=== PATIENT | female | born 1985 | race Native Hawaiian/Other Pacific Islander ===

== ENCOUNTER 2022-09-14 15:31 | Outpatient (CLI) | payer MEDICAID, SELFPAY | END 2022-09-14 15:32 | disposition home or self-care (01) | LOC: NFLDREF 15:34 | PROVIDERS: PCP Family Medicine; Visit Provider Obstetrics & Gynecology | DX: N93.9 Abnormal uterine and vaginal bleeding, unspecified (principal) | CPT/HCPCS: 84443 ==

== ENCOUNTER 2022-09-19 15:35 | Outpatient (CLI) | payer MEDICAID, SELFPAY ==
--- NOTE | 2022-09-19 16:00 | CRLHL7_ITS ---
For Patients: As a result of the Century Cures Act, medical imaging exams and procedure reports are released immediately into your electronic medical record. You may view this report before your referring provider. If you have questions, please contact your health care provider. CLINICAL HISTORY: AUB TECHNIQUE: Real time, parisi scale images were acquired of the pelvis using a transabdominal and transvaginal approach. Color Doppler analysis was performed of the ovaries. FINDINGS: The uterus measures 8.5 x 4.1 x 5.6 centimeters endometrium measures 7 millimeters. 1.7 x 1.6 x 1.5 centimeters fundal fibroid. The right ovary measures 3.1 x 1.8 x 1.7 centimeters left ovary measures 3.2 x 1.9 x 1.9 centimeters. Normal blood flow to the ovaries. IMPRESSION: 7 millimeter endometrial stripe. Dictated by Ximena López MD @ 09/20/2022 9:09:43 AM (Electronically Signed)
== END 2022-09-19 15:36 | disposition home or self-care (01) ==
LOC: US 15:36
PROVIDERS: PCP Family Medicine; Visit Provider Obstetrics & Gynecology
DX: N93.9 Abnormal uterine and vaginal bleeding, unspecified (principal); R93.89 Abnormal findings on diagnostic imaging of other specified body structures
CPT/HCPCS: 76830; 76856

== ENCOUNTER 2023-12-04 10:56 | Outpatient (CLI) | payer MEDICAID, SELFPAY ==
--- OUTSIDE RECORDS SUMMARY | 2023-12-04 11:00 | XMS_ITS | Referral Summary ---
Author Organization [facility] Address [address] [place], [place] [address] [address] Care Team Providers Care Self Defense Instructor Name Role Phone No Ref-Primary, Physician Primary Care Provider Allergies No known active allergies Medications Medication Sig Dispensed Refills Start Date End Date Status Vit-DSS-Fe Cbn-FA ( AD PO) Active acetaminophen (TYLENOL) 325 MG tablet Take 325-650 mg by mouth every 6 hours as needed for mild pain Active oxyCODONE (ROXICODONE) 5 MG tabletIndications:St atus post bilateral breast reduction Take 1-2 tablets (5-10 mg) by mouth every 4 hours as needed for moderate to severe pain 20 tablet 05/26/2022 Active senna-docusate (SENOKOT-S/PERICOLAC E) 8.6-50 MG tabletIndications:St atus post bilateral breast reduction Take 1-2 tablets by mouth 2 times daily 20 tablet 05/26/2022 Active Social History Tobacco Use Types Packs/Day Years Used Date Smoking Tobacco: Never Smokeless Tobacco: Never Tobacco Cessation:Counseling Given: Not Answered Alcohol Use Standard Drinks/Week Comments Not Currently 0 (1 standard drink = 0.6 oz pur e alcohol) Adolescent Education Answer Date Record ed Getting School Help Needed Not on file 03/17 Sex and Gender Information Value Date Recorded Sex Assigned at Not on file Gender Identity Not on file Sexual Orientation Not on file Last Filed Vital Signs Vital Sign Reading Time Taken Comments Blood Pressure 119/74 05/26/2022 12:30 PM SORTING COWS WORKER Pulse 85 05/26/2022 12:30 PM SORTING COWS WORKER Temperature 36.9 ??C (98.4 ??F) 05/26/2022 12:[address] Respiratory Rate 25 05/26/2022 12:30 PM SORTING COWS WORKER Oxygen Saturation 95% 05/26/2022 2:25 PM SORTING COWS WORKER Inhaled Oxygen Concentration - - Weight 92.7 kg (204 lb 6.4 oz) 05/26/2022 6:12 A M SORTING COWS WORKER Height 154.9 cm (5' 1) 05/26/2022 6:12 AM SORTING COWS WORKER Body Mass Index 38.62 05/26/2022 6:12 AM SORTING COWS WORKER Plan of Treatment Not on file Care Teams Self Defense Instructor Relationship Specialty Start Date End Date No Ref-Primary, Physician PCP - General 12/19/16
--- OUTSIDE RECORDS SUMMARY | 2023-12-04 11:00 | XMS_ITS | Clinical Summary ---
Author Organization [facility] Address [place], [place] [address] Care Team Providers Care Cessation Systems Outreach Specialist Name Role Phone Karina Hughes MD Primary Care Provider + [phone] Allergies No known active allergies Medications Medication Sig Dispensed Refills Start Date End Date Status propranolol ER (INDERAL LA) 80 mg Cs24 Sustained-Release capsule TK 1 C PO D 12/24/2019 Active SUMAtriptan (IMITREX) 50 mg tablet TAKE 1 TABLET BY MOUTH NEEDED FOR HEADACHE AT ONSET OF HEADACHE MAY REPEAT EVERY 2 HOURS NEEDED. MAX 4 TABLETS PER 24 HOURS 06/17/2020 Active polyethylene glycoL (MIRALAX) 17 gram/dose powder MIX 17 GRAMS IN 8 OUNCES OF WATER OR JUICE QD 12/20/2019 Active sertraline (ZOLOFT) 100 mg tablet Take 100 mg by mouth once daily. Active ibuprofen (IBU) 600 mg tablet Take 600 mg by mouth every 6 hours if needed. Maximum of 3200 mg in 24 hours. Active benzonatate (Tessalon Perles) 100 mg capsuleIndications:C ough, unspecified type Take 1 Capsule (100 mg) by mouth 3 times daily if needed for Cough. 21 Capsule 05/10/2023 Active Active Problems Problem Noted Date Diagnosed Date care, first 07/23/2014 Overview: Rubella non-immune. Karina Hughes MD .................... 07/24/2014 9:49 AM Uterine leiomyoma Resolved Problems Problem Noted Date Diagnosed Date Resolved Date Acute stress reaction 01/21/20092014 Acute gastritis without mention of hemorrhage 01/22/20 09 07/23/2014 Immunizations Name Administration Dates Next Due COVID-19 vaccine (Grocio 30mcg/0.3mL) P F, MDV 04/22/2021,03/14/2021 Hepatitis B (Adult) 10/25/2004,09/23/2004 Hepatitis B, Unspecified 10/25/2004,09/23/2004 MMR 03/23/2015,08/24/2005 Td (Age >=7 Years) 08/24/2005,09/23/2004 Tdap 01/13/2015 Varicella Vaccine 08/24/2005 Family History Medical History Relation Name Comments Diabetes Father Diabetes Mother Heart Disease Mother Hypertension Mother Stroke Mother Heart Disease Sister x2 Relation Name Status Comments Father Alive Mother Other Other no HUMAN RESOURCES LEADER malignan cy as of 06/2020 Sister Social History Tobacco Use Types Packs/Day Years Used Date Smoking Tobacco: Never Smokeless Tobacco: Never Tobacco Cessation:Counseling Given: Yes Alcohol Use Standard Drinks/Week Comments Yes 0 (1 standard drink = 0.6 oz pur e alcohol) occasional Sex and Gender Information Value Date Recorded Sex Assigned at Not on file Gender Identity Not on file Sexual Orientation Not on file Obstetrics History Para Term AB IAB SAB Ectopic Multiple Livin g Live Births 2 2 2 0 0 0 0 0 2 2 Date Outcome GA Total Labor Labor/2nd/3rd Weight Sex Type Anes PTL Agustina A1 A5 Name Clin 5 Term 38w 0d 3.57 kg (7 lb 14 oz) M C-Sec t[facility] Living 2016 Term 38w 0d 3.63 kg (8 lb) M C-Sec t[facility] Living Last Filed Vital Signs Vital Sign Reading Time Taken Comments Blood Pressure 132/81 05/10/2023 4:07 PM SORT WORKER Pulse 94 05/10/2023 4:07 PM SORT WORKER Temperature 36.9 ??C (98.5 ??F) 05/10/2023 4:07 PM CS T Respiratory Rate 20 05/10/2023 4:07 PM SORT WORKER Oxygen Saturation 97% 05/10/2023 4:07 PM SORT WORKER Inhaled Oxygen Concentration - - Weight 88 kg (194 lb) 05/10/2023 4:07 PM SORT WORKER Height 154.9 cm (5' 1) 12/02/2020 7:14 AM CDT Body Mass Index 36.66 12/02/2020 7:14 AM CDT Plan of Treatment Health Maintenance Due Date Last Done Comments Hepatitis C screening for ag e 18-79 2001 Depression screening for age 12+ 07/15/2021 07/15/2020 BMI (ht and wt on same day) for age 18+ 08/31/2021 08/31/2020, 07/15/2020 Pap test for age 21-65 07/23/2022 , 07/23/2019, 10/17/2012 COVID-19 vaccine series ( season) 2023 04/22/2021, 03/14/2021 Influenza for age 9-49 02/25/2024 Tetanus booster 01/13/2025 01/13/2015, 08/24/2005, 09/23/2004 HIV for age 15-65 Completed 07/23/2014 Tdap Completed 01/13/2015 Pneumococcal series for age 6-64 Aged Out No longer eligible b ased on patient's age to complete this topic Medical Devices Implanted Type Area Radiosonde Specialist Device Identifier Shelf Expiration Date Model / Serial / Lot Sys Intrauterine Mirena - [id number] Implanted:Qty: 1 on 12/02/2020 by Hien Hodgson MD at [facility] N/A: Uterus Card [employer] 02/23/2023 [id number] / [id number] / [id number] Adhesion Barrier 3x4in Interceed Absorb - [id number] Implanted:Qty: 1 on 12/02/2020 by Hien Hodgson MD at [facility] N/A: Pelvis [employer] Womens H / Uro 06/25/2023 [id number] / / [id number] Procedures Procedure Name Priority Date/Time Associated Diagnosis Comments HUMAN RESOURCES LEADER THIN PREP PAP SCREEN IMAGED Routine 07/23/2019 1:20 PM SORT WORKER ANTI HIV 1/2 Routine 07/23/2014 9:47 AM SORT WORKER Possible , not confirmed from Last 3 Months or Most Recently Relevant to Health Maintenance Results * HUMAN RESOURCES LEADER THIN PREP PAP SCREEN IMAGED (07/23/2019 1:20 PM SORT WORKER) Case Report Gynecologic Cytology Report ? Case: [id number] ? Authorizing Provider: ??Baron Ruiz MD ?Collected: ? 07/23/2019 1320 ? Ordering Location: ? [facility] ?Received: ?07/25/2019 0934 ? First Screen: ?Marvin Frances ? Specimen: ?HUMAN RESOURCES LEADER ThinPrep Vial Screening, Cervical/Vaginal ? 08/02/2019 8:47 AM [facility] INTERPRETATION/ RESULT NEGATIVE FOR INTRAEPITHELIAL LESION OR MALIGNANCY (NIL) (none) 08/02/2019 8:47 AM [facility] IMEN ADEQUACY Satisfactory for evaluation Endocervical component present 08/02/2019 8:47 AM [facility] HPV REQUEST HPV and PAP 08/02/2019 8:47 AM [facility] Date of LMP 07/02/2019 08/02/2019 8:47 AM [facility] Additional Information 08/02/2019 8:47 AM [facility] Comment: Interpret[place] [facility] [place] [place] [facility] - [address], [place] [address] Automated Review Successful 08/02/2019 8:47 AM SORT WORKER [facility] Comment:Specimen processed s uccessfully by automated laborer golf course device, [employer].ruPrep Imaging System, [employer] ANCILLARY TESTING HUMAN RESOURCES LEADER HPV Ordered, Please see separate report 08/02/2019 8:47 AM SORT WORKER [facility] Note The pap test is a screening technique, not a diagnostic procedure. It is used primarily to screen for squamous cancers and precursor lesions. Published studies have shown that it is subject to both false negative and false positive results. The pap test should not be used as the sole means to diagnose or exclude pre-malignant and malignant lesions. 08/02/2019 8:47 AM SORT WORKER [facility] Other (Cervical/Vagina l) 07/23/2019 1:20 PM SORT WORKER 07/25/2019 9:34 AM SORT WORKER Baron Ruiz MD PATHOLOGY/CYTOLOGY [facility] [address] [place] [address], [place] * ANTI HIV 1/2 (07/23/2014 9:47 AM SORT WORKER) HIV-1/HIV-2 ANTIBODY Non-Reacti ve Non-Reacti ve 07/23/2014 4:17 PM SORT WORKER [facility] Blood specimen (specimen) BLOOD SPECIMEN / Unknown Venipuncture / Unknown 07/23/2014 9:47 AM SORT WORKER 07/23/2014 9:47 AM SORT WORKER Narrative [facility] - 07/23/2014 4:17 PM SORT WORKER HIV-1 p24 and HIV-1/HIV-2 Ab not detected Karina Hughes MD SEND OUTS [facility] [address] [place] [address], [place] from Last 3 Months or Most Recently Relevant to Health Maintenance Advance Directives * Full Code (Latest Code Status on File) Date Activated Date Inactivated Comments 12/02/2020 6:07 AM 12/02/2020 8:24 PM Question Answer Comments Code Status Discussion: Discussed Care Teams Cessation Systems Outreach Specialist Relationship Specialty Start Date End Date Karina Hughes MD [address] [facility] [place] [address] PCP - General Family Practice 05/05/11
--- OUTSIDE RECORDS SUMMARY | 2023-12-04 11:00 | XMS_ITS | Encounter Summary ---
Author Organization [facility] Address [address] [place] [address]. [place] [address] Care Team Providers Care Teleprinter Installer Name Role Phone No Ref-Primary, Physician Primary Care Provider Reason for Referral * - Closed Specialty Diagnoses / Procedures Referred By Contac t Referred To Contact Diagnoses related condition, unspecified trimester Aiyana Storm NP [address] [address] Fax: Referral ID Status Reason Start Date Expiration Date Visits Re quested Visits Authorized [id number] Closed 12/14/2016 12/14/2017 1 1 Question Answer OB Visit? No Post Visit No Cervical Dilator Placement No Cerclage Removal No MFM Consult Yes - HX preeclampsia, elevated bp, late care, w/2 siblings w/ cleft lip NICU Consult No Farm Contractor No Psychological Consult No * - Closed Specialty Diagnoses / Procedures Referred By Contac t Referred To Contact Diagnoses related condition, unspecified trimester Aiyaan Storm NP [facility] [address] [place] [address] Fax: Referral ID Status Reason Start Date Expiration Date Visits Re quested Visits Authorized [id number] Closed 11/30/2016 11/30/2017 1 1 Question Answer MFM Location [facility] [place] 05/13/2017 Ultrasound NONE US PROC NONE MFM Issue Family history/concern *MUST request Genetic Counseling MFM Consultation (unrelated to Ultrasound findings) Yes (enter details in Comments) - history of preeclampsia, elevated bp, late care, two siblings with cleft lip Genetic Counseling Consultation: Yes fax [phone] Dr. Aiyana Storm [facility] Comments >> Patient may proceed with recommendations for further testing as directed by the Maternal Medicine Specialist >> >> If requesting Echo: MFM will determine appropriate location for exam due to indication. >> If requesting Lung Maturity Amnio: If results indicate lung maturity, induction or C/S is recommended within 36 hours. Please schedule accordingly. Dear Patient: Please be aware that coverage of these services is subject to the terms and limitations of your health insurance plan. Call member services at your health plan with any benefit or coverage questions. Please bring the following to your appointment: >> Any x-rays, CTs or MRIs which have been performed. Contact the facility where they were done to arrange for milk pickup driver prior to your scheduled appointment. Any new CT, MRI or other procedures ordered by your specialist must be performed at a [facility] facility or coordinated by your clinic's referral office. >> List of current medications >> This referral request >> Any documents/labs given to you for this referral Encounter Details Date Type Department Care Team (Late st Contact Info) Description 11/30/2016 Orders Only [facility] [place] [address] [place] [phone] Aiyana Storm, [place] [address] [address] related condition, unspecified trimester (Primary Dx) Social History Tobacco Use Types Packs/Day Years Used Date Smoking Tobacco: Never Assessed Sex and Gender Information Value Date Recorded Sex Assigned at Not on file Gender Identity Not on file Sexual Orientation Not on file documented as of this encounter Plan of Treatment Scheduled Referrals Name Type Priority Associated Diagnoses Orde r Schedule MAT MED CTR REFERRAL- Referral Routine related condition, unspecified trimester Ordered: 11/30/2016 MFM Office Visit Referral Routine related condition, unspecified trimester Weekly for 1 Occurrences starting 12/14/2016 until 12/14/2017 documented as of this encounter Visit Diagnoses Diagnosis related condition, unspecified trimester- Primary documented in this encounter Care Teams Teleprinter Installer Relationship Specialty Start Date End Date No Ref-Primary, Physician PCP - General 12/19/16 documented as of this encounter
--- OUTSIDE RECORDS SUMMARY | 2023-12-04 11:00 | XMS_ITS | Clinical Summary ---
Author Organization [facility] Address [address] [place], [place] [address] [address] Care Team Providers Care Saw Boss Name Role Phone No Ref-Primary, Physician Primary [...] Comments Blood Pressure 119/74 05/26/2022 12:30 PM OXYACETYLENE WELDER Pulse 85 05/26/2022 12:30 PM OXYACETYLENE WELDER Temperature 36.9 ??C (98.4 ??F) 05/26/2022 12:[address] Respiratory Rate 25 05/26/2022 12:30 PM OXYACETYLENE WELDER Oxygen Saturation 95% 05/26/2022 2:25 PM OXYACETYLENE WELDER Inhaled Oxygen Concentration - - Weight 92.7 kg (204 lb 6.4 oz) 05/26/2022 6:12 A M OXYACETYLENE WELDER Height 154.9 cm (5' 1) 05/26/2022 6:12 AM OXYACETYLENE WELDER Body Mass Index 38.62 05/26/2022 6:12 AM OXYACETYLENE WELDER Plan of Treatment Health Maintenance Due Date Last Done Comments ADVANCE CARE PLANNING 1983 ANNUAL REVIEW OF HM ORDERS 1983 GLUCOSE 1983 MAMMO SCREENING 1983 YEARLY PREVENTIVE VISIT 1983 HIV SCREENING 1998 HEPATITIS C SCREENING 2001 HEPATITIS B IMMUNIZATION (3 of 3 - 19+ 3-dose series) 03/25/2005 10/25/2004, 10/25/2004, 09/23/2004, Additional history exists PAP 07/23/2022 07/23/2019, 06/27, 10/17/2012 COVID-19 Vaccine ( season) 2023 04/22/2021, 03/14/2021 PHQ-2 (once per calendar year) 2023 LIPID 2023 INFLUENZA VACCINE (Season Ended) 2024 DTAP/TDAP/TD IMMUNIZATION (4 - Td or Tdap) 01/13/2025 01/13/2015, 08/24/2005, 09/23/2004 HPV IMMUNIZATION Aged Out No longer e ligible based on patient's age to complete this topic IPV IMMUNIZATION Aged Out No longer e ligible based on patient's age to complete this topic MENINGITIS IMMUNIZATION Aged Out No l onger eligible based on patient's age to complete this topic Pneumococcal Vaccine: Pediatrics (0 to 5 Years) and At-Risk Patients (6 to 64 Years) Aged Out No longer eligible based on patient's age to complete this topic RSV MONOCLONAL ANTIBODY Aged Out No l onger eligible based on patient's age to complete this topic Care Teams Saw Boss Relationship Specialty Start Date End Date No Ref-Primary, Physician PCP - General 12/19/16
== END 2023-12-04 10:57 | disposition home or self-care (01) ==
LOC: NFLDREF 10:57
PROVIDERS: PCP Family Medicine; Visit Provider Family Medicine
DX: I10 Essential (primary) hypertension (principal); Z13.29 Encounter for screening for other suspected endocrine disorder; Z13.220 Encounter for screening for lipoid disorders
CPT/HCPCS: 80053; 80061; 84443

== ENCOUNTER 2023-12-15 09:37 | Outpatient (CLI) | payer MEDICAID, SELFPAY | END 2023-12-15 09:38 | disposition home or self-care (01) | PROVIDERS: PCP Family Medicine; Visit Provider Obstetrics & Gynecology | DX: R30.0 Dysuria (principal) | CPT/HCPCS: 87086; 87186 ==

== ENCOUNTER 2024-01-03 10:51 | Outpatient (CLI) | payer MEDICAID, SELFPAY ==
--- NOTE | 2024-01-03 10:45 | CRLHL7_ITS ---
For Patients: As a result of the Century Cures Act, medical imaging exams and procedure reports are released immediately into your electronic medical record. You may view this report before your referring provider. If you have questions, please contact your health care provider. CLINICAL HISTORY: PELVIC AND PERINEAL PAIN TECHNIQUE: 2D parisi scale ultrasound. In addition color Doppler and spectral Doppler analysis was performed of the pelvis using a transabdominal and transvaginal approach. FINDINGS: Submucosal fibroid is present measuring 1.2 x 0.9 x 0.9 cm. Intramural fibroid is present within the right mid uterus measuring 14 x 9 x 11 millimeters. Additional right-sided lower uterine segment fibroid is present measuring 15 x 11 x 16 millimeters. The endometrial lining measures 12 mm in thickness. The right ovary measures 3.2 x 1.7 x 2.3 cm in size and the left ovary measures 4.2 x 2.2 x 2.6 cm. The ovaries demonstrate normal arterial and venous blood flow on color Doppler and spectral Doppler analysis. There are no suspicious fluid collections within the cul-de-sac. Collapsing left ovarian cyst is present measuring 2.6 x 1.9 x 2.3 cm. IMPRESSION: Collapsing left ovarian cyst measuring 2.6 cm. No ovarian torsion or adnexal mass. No excess pelvic free fluid. Uterine fibroids are present including a submucosal fibroid measuring 1.2 cm. Endometrial thickness 12 millimeters. Dictated by Brenden Boyce MD @ 01/04/2024 7:16:05 AM (Electronically Signed)
--- OUTSIDE RECORDS SUMMARY | 2024-01-03 10:55 | XMS_ITS | Referral Summary ---
Author Organization [facility] Address [address] [place], [place] [address] [address] Care Team Providers Care Financial Operations Consultant Name Role Phone No Ref-Primary, Physician Primary [...] Comments Blood Pressure 119/74 05/26/2022 12:30 PM VIDEO EFFECTS EDITOR Pulse 85 05/26/2022 12:30 PM VIDEO EFFECTS EDITOR Temperature 36.9 ??C (98.4 ??F) 05/26/2022 12:[address] Respiratory Rate 25 05/26/2022 12:30 PM VIDEO EFFECTS EDITOR Oxygen Saturation 95% 05/26/2022 2:25 PM VIDEO EFFECTS EDITOR Inhaled Oxygen Concentration - - Weight 92.7 kg (204 lb 6.4 oz) 05/26/2022 6:12 A M VIDEO EFFECTS EDITOR Height 154.9 cm (5' 1) 05/26/2022 6:12 AM VIDEO EFFECTS EDITOR Body Mass Index 38.62 05/26/2022 6:12 AM VIDEO EFFECTS EDITOR Plan of Treatment Not on file Care Teams Financial Operations Consultant Relationship Specialty Start Date End Date No Ref-Primary, Physician PCP - General 12/19/16
--- OUTSIDE RECORDS SUMMARY | 2024-01-03 10:55 | XMS_ITS | Encounter Summary ---
Author Organization [facility] Address [address] [place] [address]. [place] [address] Care Team Providers Care Manager Contracting Name Role Phone No Ref-Primary, Physician Primary Care Provider Reason for Referral * - Closed Specialty Diagnoses / Procedures Referred By Contac t Referred To Contact Diagnoses related condition, unspecified trimester Aiyana Storm NP [address] [address] Fax: Referral ID Status Reason Start Date Expiration Date Visits Re quested Visits Authorized [id number] Closed 12/14/2016 12/14/2017 1 1 Question Answer OB Visit? No Post Visit No Cervical Dilator Placement No Cerclage Removal No MFM Consult Yes - HX preeclampsia, elevated bp, late care, w/2 siblings w/ cleft lip NICU Consult No Quality Control Director No Psychological Consult No * - Closed Specialty Diagnoses / Procedures Referred By Contac t Referred To Contact Diagnoses related condition, unspecified trimester Aiyana Storm NP [facility] [address] [place] [address] Fax: Referral ID Status Reason Start Date Expiration Date Visits Re quested Visits Authorized [id number] Closed 11/30/2016 11/30/2017 1 1 Question Answer MFM Location [facility] 05/13/2017 Ultrasound NONE US PROC NONE MFM Issue Family history/concern *MUST request Genetic Counseling MFM Consultation (unrelated to Ultrasound findings) Yes (enter details in Comments) - history of preeclampsia, elevated bp, late care, two siblings with cleft lip Genetic Counseling Consultation: Yes fax [phone] [facility] Comments >> Patient may proceed with recommendations [...] where they were done to arrange for pickling operator prior to your scheduled appointment. Any new CT, MRI or other procedures ordered by your specialist must be performed at a [facility] facility or coordinated by your clinic's referral office. >> List of current medications >> This referral request >> Any documents/labs given to you for this referral Encounter Details Date Type Department Care Team (Late st Contact Info) Description 11/30/2016 Orders Only [facility] [place] [address] [place] [phone] Aiyana Storm, [place] [address] [address] related condition, unspecified trimester (Primary Dx) Social [...] Primary documented in this encounter Care Teams Manager Contracting Relationship Specialty Start Date End Date No Ref-Primary, Physician PCP - General 12/19/16 documented as of this encounter
--- OUTSIDE RECORDS SUMMARY | 2024-01-03 10:55 | XMS_ITS | Clinical Summary ---
Author Organization [email or web address] [facility] Address [place], [place] [address] Care Team Providers Care Inverter And Clipper Name Role Phone Karina Hughes MD Primary Care Provider + [phone] Allergies No known active allergies Medications Medication [...] 01/21/20092014 Acute gastritis without mention of hemorrhage 01/22/2007/23/2014 Encounters Date Type Department Care Team Description 12/15/2023 Transcribe Orders [facility] [address] [place] [address] Tara Calzada MD from Last 3 Months Immunizations Name Administration Dates Next Due COVID-19 vaccine ([employer] 30mcg/0.3mL) MELANIE Cheatham 04/22/2021,03/14/2021 Hepatitis B (Adult) 10/25/2004,09/23/2004 Hepatitis B, Unspecified 10/25/2004,09/23/2004 MMR 03/23/2015,08/24/2005 Td (Age >=7 Years) 08/24/2005,09/23/2004 Tdap 01/13/2015 Varicella Vaccine 08/24/2005 Family History Medical History Relation Name Comments Diabetes Father Diabetes Mother Heart Disease Mother Hypertension Mother Stroke Mother Heart Disease Sister x2 Relation Name Status Comments Father Alive Mother Other Other no INSURANCE CLAIMS EXAMINER malignan cy as of 06/2020 Sister Social [...] Comments Blood Pressure 132/81 05/10/2023 4:07 PM CHAINSTITCH SEWING MACHINE OPERATOR Pulse 94 05/10/2023 4:07 PM CHAINSTITCH SEWING MACHINE OPERATOR Temperature 36.9 ??C (98.5 ??F) 05/10/2023 4:07 PM CS T Respiratory Rate 20 05/10/2023 4:07 PM CHAINSTITCH SEWING MACHINE OPERATOR Oxygen Saturation 97% 05/10/2023 4:07 PM CHAINSTITCH SEWING MACHINE OPERATOR Inhaled Oxygen Concentration - - Weight 88 kg (194 lb) 05/10/2023 4:07 PM CHAINSTITCH SEWING MACHINE OPERATOR Height 154.9 cm (5' 1) 12/02/2020 7:14 [...] this topic Medical Devices Implanted Type Area Extract Operator Device Identifier Shelf Expiration Date Model / Serial / Lot Sys Intrauterine Mirena - [id number] Implanted:Qty: 1 on 12/02/2020 by Hien Hodgson MD at [facility] N/A: Uterus Deepika [employer] 02/23/2023 [id number] / [id number] / [id number] Adhesion Barrier 3x4in Interceed Absorb - [id number] Implanted:Qty: 1 on 12/02/2020 by Hien Hodgson MD at [facility] N/A: Pelvis [employer] / [employer] 06/25/2023 [id number] / / [id number] Procedures Procedure Name Priority Date/Time Associated Diagnosis Comments INSURANCE CLAIMS EXAMINER THIN PREP PAP SCREEN IMAGED Routine 07/23/2019 1:20 PM CHAINSTITCH SEWING MACHINE OPERATOR ANTI HIV 1/2 Routine 07/23/2014 9:47 AM CHAINSTITCH SEWING MACHINE OPERATOR Possible , not confirmed from Last 3 Months or Most Recently Relevant to Health Maintenance Results * INSURANCE CLAIMS EXAMINER THIN PREP PAP SCREEN IMAGED (07/23/2019 1:20 PM CHAINSTITCH SEWING MACHINE OPERATOR) Case Report Gynecologic Cytology Report ? Case: [id number] ? Authorizing Provider: ??Baron Ruiz MD ?Collected: ? 07/23/2019 1320 ? Ordering Location: ? [facility] ?Received: ?07/25/2019 0934 ? First Screen: ?Marvin Frances ? Specimen: ?INSURANCE CLAIMS EXAMINER ThinPrep Vial Screening, Cervical/Vaginal ? 08/02/2019 8:[address] [facility] INTERPRETATION/ RESULT NEGATIVE FOR INTRAEPITHELIAL LESION OR MALIGNANCY (NIL) (none) 08/02/2019 8:[address] [facility] IMEN ADEQUACY Satisfactory for evaluation Endocervical component present 08/02/2019 8:[address] [facility] HPV REQUEST HPV and PAP 08/02/2019 8:[address] [facility] Date of LMP 07/02/2019 08/02/2019 8:47 AM CHAINSTITCH SEWING MACHINE OPERATOR [facility] Additional Information 08/02/2019 8:47 AM CHAINSTITCH SEWING MACHINE OPERATOR [facility] Comment: Interpreted at [facility] - [address], [place] [address] Automated Review Successful 08/02/2019 8:47 AM CHAINSTITCH SEWING MACHINE OPERATOR [facility] Comment:Specimen processed s uccessfully by automated route contractor device, ThinPrep Imaging System, [employer] ANCILLARY TESTING INSURANCE CLAIMS EXAMINER HPV Ordered, Please see separate report 08/02/2019 8:47 AM CHAINSTITCH SEWING MACHINE OPERATOR [facility] Note The pap test is a screening technique, not a diagnostic procedure. It is used primarily to screen for squamous cancers and precursor lesions. Published studies have shown that it is subject to both false negative and false positive results. The pap test should not be used as the sole means to diagnose or exclude pre-malignant and malignant lesions. 08/02/2019 8:47 AM CHAINSTITCH SEWING MACHINE OPERATOR [facility] Other (Cervical/Vagina l) 07/23/2019 1:20 PM CHAINSTITCH SEWING MACHINE OPERATOR 07/25/2019 9:34 AM CHAINSTITCH SEWING MACHINE OPERATOR Baron Ruiz MD PATHOLOGY/CYTOLOGY [facility] [address] [place] [address], [place] * ANTI HIV 1/2 (07/23/2014 9:47 AM CHAINSTITCH SEWING MACHINE OPERATOR) HIV-1/HIV-2 ANTIBODY Non-Reacti ve Non-Reacti ve 07/23/2014 4:17 PM CHAINSTITCH SEWING MACHINE OPERATOR [facility] Blood specimen (specimen) BLOOD SPECIMEN / Unknown Venipuncture / Unknown 07/23/2014 9:47 AM CHAINSTITCH SEWING MACHINE OPERATOR 07/23/2014 9:47 AM CHAINSTITCH SEWING MACHINE OPERATOR Narrative [facility] - 07/23/2014 4:17 PM CHAINSTITCH SEWING MACHINE OPERATOR HIV-1 p24 and HIV-1/HIV-2 Ab not detected Karina Hughes MD SEND OUTS [facility] [address] [place] [address], from Last 3 Months or Most Recently Relevant to Health Maintenance Advance Directives * Full Code (Latest Code Status on File) Date Activated Date Inactivated Comments 12/02/2020 6:07 AM 12/02/2020 8:24 PM Question Answer Comments Code Status Discussion: Discussed Care Teams Inverter And Clipper Relationship Specialty Start Date End Date Karina Hughes MD [address] [facility] Agnieszka BHAKTA [place] [address] PCP - General Family Practice 05/05/11
--- OUTSIDE RECORDS SUMMARY | 2024-01-03 10:55 | XMS_ITS | Clinical Summary ---
Author Organization [place] Address [address] [place], [place] [address] [address] Care Team Providers Care Sales Account Associate Name Role Phone No Ref-Primary, Physician Primary [...] Comments Blood Pressure 119/74 05/26/2022 12:30 PM DISTRICT SUPERINTENDENT Pulse 85 05/26/2022 12:30 PM DISTRICT SUPERINTENDENT Temperature 36.9 ??C (98.4 ??F) 05/26/2022 12:[address] Respiratory Rate 25 05/26/2022 12:30 PM DISTRICT SUPERINTENDENT Oxygen Saturation 95% 05/26/2022 2:25 PM DISTRICT SUPERINTENDENT Inhaled Oxygen Concentration - - Weight 92.7 kg (204 lb 6.4 oz) 05/26/2022 6:12 A M DISTRICT SUPERINTENDENT Height 154.9 cm (5' 1) 05/26/2022 6:12 AM DISTRICT SUPERINTENDENT Body Mass Index 38.62 05/26/2022 6:12 AM DISTRICT SUPERINTENDENT Plan of Treatment Health Maintenance Due Date Last Done Comments ADVANCE CARE PLANNING 1983 ANNUAL REVIEW OF HM ORDERS 1983 GLUCOSE 1983 MAMMO SCREENING 1983 YEARLY PREVENTIVE VISIT 1983 HIV SCREENING 1998 HEPATITIS C SCREENING 2001 HEPATITIS B IMMUNIZATION (3 of 3 - 19+ 3-dose series) 03/25/2005 10/25/2004, 09/23/2004 PAP 07/23/2022 07/23/2019, 07/23/2019, 10/17/2012 COVID-19 Vaccine (3 - 2022-2 4 season) 2023 04/22/2021, 03/14/2021 PHQ-2 (once per [...] 62 Years) Aged Out No longer eligible b ased on patient's age to complete this topic RSV MONOCLONAL ANTIBODY Aged Out No l onger eligible based on patient's age to complete this topic Care Teams Sales Account Associate Relationship Specialty Start Date End Date No Ref-Primary, Physician PCP - General 12/19/16
== END 2024-01-03 10:52 | disposition home or self-care (01) ==
LOC: US 10:51
PROVIDERS: PCP Family Medicine; Visit Provider Obstetrics & Gynecology
DX: R10.2 Pelvic and perineal pain (principal); D25.9 Leiomyoma of uterus, unspecified; R93.89 Abnormal findings on diagnostic imaging of other specified body structures
CPT/HCPCS: 76830; 76856; 93976

== ENCOUNTER 2024-02-21 06:49 | Day surgery (SDC) | payer MEDICAID, SELFPAY ==
[2024-02-21] VITALS (22 sets, daily range): BP systolic 99–142; BP diastolic 58–102; PULSE 63–99; RESP 14–20; TEMP 36.1–37.2; O2SAT 93–97; BMI 38.7
--- OUTSIDE RECORDS SUMMARY | 2024-02-21 06:52 | XMS_ITS | Encounter Summary ---
Author Organization [facility] Address [address] [place] [address] Care Team Providers Care Grip Boss Name Role Phone Unavailable Primary Care Provider Unavailabl e Encounter Details Date Type Department Care Team ([facility] st Contact Info) Description 02/13/2024 Clinical Communication Department of Medical Genetics in [place], [place] [address] [place] [phone] Melissa Guerrero M.S., [facility] [address] [place] [phone] Social History Tobacco Use Types Packs/Day Years Used Date Smoking Tobacco: Never Smokeless Tobacco: Never Alcohol Use Standard Drinks/Week Comments Yes 1 (1 standard drink = 0.6 oz pur e alcohol) [facility] Utilities Answer Date Recorded In the past 12 months has e [employer], gas, oil, or water [employer] threatened to shut off services in your home? Yes 01/24/2024 PHQ-2 Answer Date Recorded PHQ-2 Score 6 12/05/2018 Exercise Vital Sign Answer Date Recorde d On average, how many days pe r week do you engage in moderate to strenuous exercise (like a brisk walk)? 2 days 01/24/2024 On average, how many minutes do you engage in exercise at this level? 30 min 01/24/2024 Hunger Vital Sign Answer Date Recorded Within the past 12 months, y ou worried that your food would run out before you got the money to buy more. Patient declined Within the past 12 months, t he food you bought just didn't last and you didn't have money to get more. Patient declined PRAPARE - Transportation Answer Date Re corded In the past 12 months, has l ack of transportation kept you from medical appointments or from getting medications? No 12/26 In the past 12 months, has l ack of transportation kept you from meetings, work, or from getting things needed for daily living? No 01/24/2024 Nutrition Answer Date Recorded On average, how many serving s of fruits and vegetables do you eat per day (serving size is equal to 1 cup or approximately the size of a tennis ball)? 0-2 01/24/2024 Dental Answer Date Recorded Dental: Regular Dentist Yes 01/24/20 Employment Answer Date Recorded Employment status Employed and actively working without restrictions 01/24/2024 Housing Stability Answer Date Recorded What is your living situation today? I have a [facility] place to live 01/24/2024 Sex and Gender Information Value Date Recorded Sex Assigned at Female 01/24/2024 10:02 AM CDT Gender Identity Female 01/24/2024 10:02 AM CDT Sexual Orientation Straight 01/24/2024 10 :02 AM CDT documented as of this encounter Plan of Treatment Not on file documented as of this encounter Visit Diagnoses Not on filedocumented in this encounter Additional Health Concerns Assessment Noted Time PHQ-9 Depression Total Score: 21 018 3:37 PM CDT documented as of this encounter
--- OUTSIDE RECORDS SUMMARY | 2024-02-21 06:52 | XMS_ITS | Encounter Summary ---
Author Organization [facility] Address [address] [place] [address] Care Team Providers Care Utility Worker [place] Name Role Phone Unavailable Primary Care Provider Unavailabl e Reason for Visit * Appointment Request (Routine) - Closed Specialty Diagnoses / Procedures Referred By Mayo davalos Referred To Contact Clinical Genomics Diagnoses Cancer Breast Family History Family History Of Malignant Neoplasm Of Digestive Organs Cancer Colon Family History Tara Calzada M.D. [address] [place] [address] Referral ID Status Reason Start Date Expiration Date Visits Re quested Visits Authorized [id number] Closed 12/25/2023 12/24/2024 1 1 Encounter Details Date Type Department Care Team ([facility] Contact Info) Description 01/24/2024 10:30 AM CDT Office Visit Department of Medical Genetics in [place], [place] [address] [place] [phone] Tamar Gonzalez M.S., [facility] [address] [place] [phone] Cancer Ovary Family History (Primary Dx); Cancer Breast Family History; Cancer Colon Family History; Cancer Stomach Family History; Cancer Kidney Family History; Leukemia Family History Social History Tobacco Use Types Packs/Day Years Used Date Smoking Tobacco: Never Smokeless Tobacco: Never Tobacco Cessation:Counseling Given: Not Answered Alcohol Use Standard Drinks/Week Comments Yes 1 (1 standard drink = 0.6 oz pur e alcohol) [facility] Utilities Answer Date Recorded In the past 12 months has th e [employer], gas, oil, or water [employer] threatened to shut off services in your [...] Date Recorded Dental: Regular Dentist Yes 01/24/20 24 Employment Answer Date Recorded Employment status Employed and actively working without restrictions 01/24/2024 Housing Stability Answer Date Recorded What is your living situation today? [facility] 01/24/2024 Sex and Gender Information Value Date Recorded Sex Assigned at Female 01/24/2024 10:02 AM CDT Gender Identity Female 01/24/2024 10:02 AM CDT Sexual Orientation Straight 01/24/2024 10 :02 AM CDT documented as of this encounter Consult Notes * Tamar Gonzalez M.S., [facility] - 01/24/2024 10:30 AM CDT Images from the original note were not included. REFERRING PROVIDER Tara Calzada M.D. CHIEF COMPLAINT Family history of ovarian cancer, breast cancer, colon cancer HISTORY OF PRESENT ILLNESS Asha Garcia is a delightful 38 y.o. female referred by Tara Calzada M.D. due to their family history of ovarian and other cancer. Asha has no personal history of cancer. They are scheduled for baseline mammogram soon. Asha is , their first parity was at 30 years old, and they are premenopausal. They report no history of HRT. Asha retains uterus and ovaries at this time, but is planning to undergo hysterectomy soon due to extremely heavy and painful periods and frequent pelvic/obgyn nurse pain. Asha is interested in genetic testing to help decide whether to have oophorectomy along with hysterectomy. The patient is a non-smoker. They report no history of heavy alcohol consumption. Asha underwentbreast reduction surgery in 2022. She has also undergone screening colonoscopy based on family history The family history is significant for breast, ovarian, colon, and other cancer. Please see family history section below for additional details. Asha attended today's consultation with her friend. FAMILY HISTORY A detailed family history was obtained from the patient and a pedigree was constructed. The pedigree will be saved as a scanned document and available for viewing under the Media tab of [employer]. Our risk assessment is based upon medical and family history information as provided by the patient, and may change in the future should new information be obtained. Pedigree taken by Tamar Gonzalez, 01/24/2024 Relevant History: Biological mother at age 53 from stroke Maternal half sister with breast cancer (metastatic, triple negative) at age 49 Maternal half sister with ovarian cancer diagnosed at age 28 Maternal half sister with colon cancer diagnosed at age 27 Maternal half brother at age 6 from stomach or other cancer Maternal grandfather with kidney cancer at age 78 Maternal grandmother at age 32 from stroke during Maternal first cousin with leukemia at age 2 Maternal first cousin from unknown cancer at age 5 Limited family structure: Patient has no full siblings. Father and paternal family history are largely unknown. 8 maternal half siblings in infancy from unknown causes. 5 maternal half aunts in infancy from unknown causes. Many family members are in [facility] and records are not available. The patient's maternal ancestry is [place] ([place]) and ; the patient's paternal ancestry is [place] ([place]). There is no reported consanguinity. IMPRESSION/REPORT/PLAN PATIENT EDUCATION We discussed that cancer is a relatively common diagnosis in the general population, and the majority of these cancers are either sporadic or familial. Hereditary cancers are caused by mutations within a single cancer susceptibility gene. Families with hereditary cancers tend to have the following features: specific types of cancer in multiple close relatives and in several consecutive generations, early age at diagnosis (under 50), multiple primary or bilateral tumors, and a lack of environmental or other known risk factors. About 1-2% of women in the [place] will develop ovarian cancer during their lifetime. It is believed that up to 20% of ovarian cancers are associated with a strong underlying hereditary susceptibility, such as mutations in the BRCA1 gene or the BRCA2 gene. Additionally, mutations in other genes, including Carter syndrome and RAD51C, RAD51D, and BRIP1, among others, have been found to cause a hereditary susceptibility to ovarian cancer. We discussed the cancer risks and medical management guidelinesassociated with mutations in these genes. We discussed how these mutations are inherited through families. About 12% of women in the [place] will develop breast cancer during their lifetime. It is believed that approximately 5%-10% of breast cancers are associated with a strong underlying hereditary susceptibility, such as mutations in the BRCA1 gene or the BRCA2 gene. Additionally, mutations in other genes, including PALB2, KOKO, and CHEK2, among others, have been found to cause a hereditary susceptibility to breast cancer. We discussed the cancer risks and medical management guidelines associated withmutations in these genes. We discussed how these mutations are inherited through families. About 4% of men and women in the [place] will develop colorectal cancer during their lifetime. An individual's risk of developing colorectal cancer may be altered by multiple risk factors. Some known risk factors for colorectal cancer include: obesity, a diet high in red and processed meat, smoking, inflammatory bowel disease, abdominal radiation, a family history of colorectal cancer, and single-gene hereditary susceptibilities. It is believed that approximately 5%- 10% of colorectal cancers are associated with a strong underlying hereditary susceptibility, such as Carter syndrome. We discussed that Carter syndrome is an autosomal dominant condition associated with an increased risk for colon, en dometrial, gastric, ovarian, and other cancers. Mutations in multiple genes can cause Carter syndrome, including MLH1, MSH2, MSH6, PMS2, and EPCAM. The likelihood of Carter syndrome is increased in individuals with colorectal cancer with one or more of the following characteristics: diagnosed at younger than 50 years, who have a lower body mass index, or who have a strong family history of Carter-associated cancers. Additionally, mutations in other genes, including APC and MUTYH, among others, have been found to cause a hereditary susceptibility to the development of colon polyps and colorectal cancer. We discussed the cancer risks and medical management guidelines associated with mutations inthese genes. We discussed how these mutations are inherited through families. We discussed testing panels that cover many genes known or thought to be associated with hereditaryor familial cancer. Mutations in some of the genes account for rare hereditary cancer syndromes that include significant risks for cancer, while other genes are currently thought of as modifier genesthat potentially increase the risk for cancer. There are several limitations of these tests. The exact cancer risks for some of the genes that are included on these panels are not known at this pointin time. Therefore, it may be difficult to provide appropriate screening/medical management recommendations. Additionally, there is a significant chance that a variant of uncertain significance may be identified. We discussed different hereditary cancer panel test options. Laws governing genetic discrimination were discussed. Risks, benefits, and limitations of genetic testing were discussed. Implications of possible test results, including positive, negative, and variant of uncertain significance, were discussed. RISK ASSESSMENT The patient's family history is suggestive of a genetic predisposition to cancer. Asha meets current National Comprehensive Cancer Network (NCCN) Testing Criteria for ovarian cancer susceptibilitygenes. Genetic testing is most informative when it is first performed on a family member with a personal history of cancer. Testing is available to Asha but with limitations. If they elect to pursue genetic testing today and receive a negative test result, this does not rule out the possibility of a hereditary cancer syndrome in the patient and/or their family. Asha would remain at an elevated empiric risk for cancer based on their family history and should continue to be managed accordingly. The patient's affected maternal half-sisters would be the most informative individuals to pursue genetic testing, based on their diagnoses of breast, ovarian, and colon cancers. They are currently unavailable for testing. PLAN Asha elected to pursue a broad custom+RNA hereditary cancer panel through [facility]. Asha will complete a blood draw today. The laboratory will bill the patient's insurance directly and will contact the patient if the out of pocket cost is greater than $100. Results will become available approximately 2-3 weeks from the release of testing. We will contact the patient with their test results when they become available. Screening and management recommendations will be made for the patient and their family members at the time of results disclosure. If results are negative or a variant of uncertain significance is identified, the patient will be contacted with results via the patient portal. If results are positive or complex, results will be disclosed via a video or in person return visit. If genetic test results are negative or a variant of uncertain significance is identified, the following screening recommendations would apply for Asha and their relatives. PERSONAL AND FAMILY SCREENING RECOMMENDATIONS Individuals with ovaries who have a first- or second-degree relative diagnosed with ovarian cancer may remain at an elevated empiric risk to develop this cancer based on the family history. They may wish to discuss options for management and screening with a provider in gynecology. Oophorectomy maybe considered based on family history and other risk factors. The National Comprehensive Cancer Network recommends that women with a first- or second-degree relative diagnosed with breast cancer undergo breast cancer screening beginning 10 years younger than the earliest age of a breast cancer diagnosis in the family, but no later than age 40. Thus, women in this family should begin breast cancer screening at age 39. Screening may include breast self-examinations, clinical breast examinations, mammograms, and possibly breast MRIs, to be performed as directed by their physicians. According to National Comprehensive Cancer Network guidelines (v.3.2021), individuals who have a first degree relative with colorectal cancer at any age are advised to begin colonoscopies at age 40 or approximately ten years younger than the earliest age of colon cancer diagnosis (whichever is earliest). Colonoscopy should be repeated every 5 years or earlier based on colonoscopy findings. First degree relatives (children, siblings and parents) of the patient's maternal half-sister should startscreening colonoscopies at age 17-27 based on their relative's age at diagnosis. Individuals with asecond degree relative with colon cancer are advised to begin screening by age 45 or earlier. Some combinations of affected first-,second-, and third-degree relatives may increase risk sufficiently to alter screening guidelines. Colonoscopy intervals should be further modified based on personal and family history as well as on individual preferences. Factors that modify age to begin screening and colonoscopy intervals include: age of individual undergoing screening; specifics of the family history, including number and age of onset of all affected relatives; size of family; completenessof the family history; participation in screening; and colonoscopy findings in family members. These screening recommendations are based on national guidelines. Final screening recommendations should be deferred to the discretion of the managing physician. Other screening recommendations, suchas those made by the [place] [employer], do remain appropriate. It was a pleasure to meet Asha. They are certainly welcome to contact us with any additional questions. PATIENT EDUCATION: All of the above was discussed in detail with the patient who verbalized understanding. The patient's questions were answered. Total time: 45 minutes Electronically signed by Tamar Gonzalez M.S., [facility] at 02/06/2024 12:37 PM CDT documented in this encounter Plan of Treatment Not on file documented as of this encounter Visit Diagnoses Diagnosis Cancer Ovary Family History- Primary Cancer Breast Family History Cancer Colon Family History Cancer Stomach Family History Cancer Kidney Family History Leukemia Family History documented in this encounter Additional Health Concerns Assessment Noted Time PHQ-9 Depression Total Score: 21 018 3:37 PM CDT documented as of this encounter
--- OUTSIDE RECORDS SUMMARY | 2024-02-21 06:52 | XMS_ITS ---
Author Organization [facility] Address [address] [place] [address] Care Team Providers Care Model And Pattern Supervisor Name Role Phone Unavailable Unavailable Unavailable Surgery Details Not on file Complications Check Surgery Details section. Procedure Estimated Blood Loss Check Surgery Details section. Procedure Findings Check Surgery Details section. Procedure Specimens Taken Check Surgery Details section.
--- OUTSIDE RECORDS SUMMARY | 2024-02-21 06:52 | XMS_ITS | Referral Summary ---
Author Organization [facility] Address [address] [place] [address] Care Team Providers Care Veneer Glue Jointer Feedback Name Role Phone Unavailable Primary Care Provider Unavailabl e Source Comments Patient records contain information from all sites at [facility]. For routine questions regarding patient records, call [phone] during business hours, M-F 8:00 AM - 5:00 PM Central Time. Record requests for emergency care only can be directed to [phone] at any time.[facility] Encounters Date Type Department Care Team Description 02/13/2024 Clinical Communication Department of Medical Genetics in [place], [place] [address] [place] [phone] Melissa Guerrero M.S., [facility] 01/24/2024 11:09 AM CDT - 01/24/2024 11:59 PM CDT Hospital Encounter Department of Laboratory Medicine and Pathology, [facility], in [place], [place] [address] [place] [phone] Олег Pratt M.D. Cancer Breast Family History; Cancer Ovary Family History; Cancer Colon Family History; Cancer Stomach Family History; Cancer Kidney Family History; Leukemia Family History Discharge Disposition: Home or Self Care 01/24/2024 Clinical Communication Department of Medical Genetics in [place], [place] [address] [place] [phone] Tamar Gonzalez M.S., [facility] [place] 01/24/2024 10:30 AM CDT Office Visit Department of Medical Genetics in [place], [place] [address] [place] [phone] Tamar Gonzalez M.S., [facility] Cancer Ovary Family History (Primary Dx); Cancer Breast Family History; Cancer Colon Family History; Cancer Stomach Family History; Cancer Kidney Family History; Leukemia Family History from Last 3 Months Allergies No known active allergies Medications Medication Sig Dispensed Refills Start Date End Date Status sertraline (ZOLOFT) 100 mg tablet 01/03/2018 Active SUMAtriptan (IMITREX) 25 mg tablet 01/01/2018 Active FERROUS SULFATE ORAL Take by mouth. 05/28/2015 Active IBUPROFEN ORAL Take 1 tablet by mouth 3 (three) times a day as needed. 03/23/2015 Active PNV no.95/ferrous fum/folic ac ( MULTIVITAMINS ORAL) Take by mouth daily. 09/01/2014 Active Active Problems No known active problems Resolved Problems Problem Noted Date Diagnosed Date Resolved Date Reaction Stress 05/01/2009 01/08/2018 Pain Abdominal NOS 05/01/2009 8 Dyspareunia Female 03/23/2009 8 Infection Kidney 03/03/2009 01/08/2018 Immunizations Name Administration Dates Next Due MMR 03/23/2015,08/24/2005 Td (Adult), adsorbed 08/24/2005,09/23/2004 Tdap 01/13/2015 OLGA 08/24/2005 Social History Tobacco Use Types Packs/Day Years Used Date Smoking Tobacco: Never Smokeless Tobacco: Never Tobacco Cessation:Counseling Given: Not Answered Alcohol Use Standard Drinks/Week Comments Yes 1 (1 standard drink = 0.6 oz pur e alcohol) [facility] Utilities Answer Date Recorded In the past 12 months has [employer], gas, oil, or water [employer] threatened to shut off services in your [...] your living situation today? I have a [facility] place to live 01/24/2024 Sex and Gender Information Value Date Recorded Sex Assigned at Female 01/24/2024 10:02 AM CDT Gender Identity Female 01/24/2024 10:02 AM CDT Sexual Orientation Straight 01/24/2024 10 :02 AM CDT Last Filed Vital Signs Vital Sign Reading Time Taken Comments Blood Pressure 126/74 01/08/2018 3:31 PM CDT Pulse 68 01/08/2018 3:31 PM CDT Temperature 35.9 ??C (96.6 ??F) 01/08/2018 3:31 PM CD T Respiratory Rate 16 01/08/2018 3:31 PM CDT Oxygen Saturation - - Inhaled Oxygen Concentration - - Weight 85.5 kg (188 lb 7.9 oz) 01/08/2018 3:31 P M CDT Height 158 cm (5' 2.21) 05/28/2015 10:51 AM PICKLING GRADER Body Mass Index 34.25 05/28/2015 10:51 AM PICKLING GRADER Plan of Treatment Not on file Procedures Procedure Name Priority Date/Time Associated Diagnosis Comments MISC AMBRY GENETICS Routine 01/24/2024 1 1:34 AM CDT PATHOLOGY GENERAL MANAGER FARM CYTOLOGY Routine 05/28/2015 12:00 AM PICKLING GRADER from Last 3 Months or Most Recently Relevant to Health Maintenance Results * [facility]01/24/2024 11:34 AM CDT) Test Name Jennifer Custom + RNA Panel 01/24/2024 3:16 PM CDT AMBR Result SEE COMMENT 02/13/2024 10:12 AM CDT AMBR Comment: For final report, select Lab-Send Out Lab Results hyperlink below. 01/24/2024 11:3 4 AM CDT 01/24/2024 3:16 PM CDT Олег Pratt M.D. LAB [facility] ORDERABLE S [facility] [address] [place] [address], [facility] AMBR [facility] [address] [place] [address] * Pathology GENERAL MANAGER FARM Cytology (05/28/2015 12:00 AM PICKLING GRADER) 05/28/2015 Narrative [facility] - 06/05/2015 7:42 AM PICKLING GRADER [facility] in [place] [address] [facility] [address] [place] [address] ??[phone] Patient Name: ASHA CHRISTENSEN Collected: 05/28/2015 Address: City/State/Zip: [address] [place] [address] ??[phone] Received: Reported: 05/29/2015 06/05/2015 Soc. Sec. #: ?/Age/Sex 1985 (Age: 29) ??F Physician(s): ELDON ARMENDARIZ MD Copy To: ? [facility] ??[id number] [address] [facility] [place], ??[place] ??[id number] CYTOPATHOLOGY GENERAL MANAGER FARM REPORT * Amended * FINAL CYTOLOGIC DIAGNOSIS Pap Smear - ThinPrep: NEGATIVE FOR INTRAEPITHELIAL LESION OR MALIGNANCY ENDOCERVICAL CELLS/COMPONENT PRESENT. SATISFACTORY SPECIMEN FOR EVALUATION. Electronically Signed Out By 06/04/2015 FABY VELA(ASCP) KIP VELA(ASCP) The Pap test is a screening procedure and, as such, is subject to both false positive and false negative results as evidenced by published data. ??It is not a diagnostic test and results should be interpreted in the context of the patient's history and other clinical findings. ??Obtaining periodic Pap tests may help to minimize the consequences of any false negatives that may occur. Amendments: Amended: ??06/05/2015 by FABY VELA(ASCP) Reason: Accessioning Error Specimen inadvertenly entered as a conventional smear. Case is amended to change to a ThinPrep specimen. Previous Signout Date: ??06/04/2015 SPECIMEN(S) RECEIVED: Pap Smear - ThinPrep CLINICAL HISTORY: Date of Last PAP: 2013 Menstrual History: Post- Hormonal History: Hormone therapy: BCP Other Clinical Conditions: HPV TYPING REQUESTED: IF ASCUS Ricardo Armendariz M.D. LAB PAP COPATH ORDERABLES LC LAB from Last 3 Months or Most Recently Relevant to Health Maintenance
--- OUTSIDE RECORDS SUMMARY | 2024-02-21 06:52 | XMS_ITS | Clinical Summary ---
Author Organization [facility] Address [address] [place] [address] Care Team Providers Care Fish And Wildlife Scientific Aid Name Role Phone Unavailable Primary Care Provider Unavailabl e Source Comments Patient records contain information from all sites at [facility]. For routine questions regarding patient records, call [phone] during business hours, M-F 8:00 AM - 5:00 PM Central Time. Record requests for emergency care only can be directed to [phone] at any time.[facility] Allergies No known active allergies Medications Medication [...] Female 03/23/2009 8 Infection Kidney 03/03/2009 01/08/2018 Encounters Date Type Department Care Team Description 02/13/2024 Clinical Communication Department of Medical Genetics in [place], [place] [address] [place] [address] Melissa Guerrero M.S., CGC 01/24/2024 11:09 AM CDT - 01/24/2024 11:59 PM CDT Hospital Encounter Department of Laboratory Medicine and Pathology, [facility], in [place], [place] [address] [place] [address] Олег Pratt M.D. Cancer Breast Family History; Cancer Ovary Family History; Cancer Colon Family History; Cancer Stomach Family History; Cancer Kidney Family History; Leukemia Family History Discharge Disposition: Home or Self Care 01/24/2024 10:30 AM CDT Office Visit Department of Medical Genetics in [place], [place] [address] [place] [address] Tamar Gonzalez M.S., MIKY Cancer Ovary Family History (Primary Dx); Cancer Breast Family History; Cancer Colon Family History; Cancer Stomach Family History; Cancer Kidney Family History; Leukemia Family History 01/24/2024 Clinical Communication Department of Medical Genetics in [place], [place] [address] [place] [address] Tamar Gonzalez M.S., [facility] genetic testing from Last 3 Months Immunizations Name Administration Dates Next Due MMR 03/23/2015,08/24/2005 Td (Adult), adsorbed 08/24/2005,09/23/2004 Tdap 01/13/2015 OLGA 08/24/2005 Family History * Patient is adopted Medical History Relation Name Comments Diabetes Father Stomach cancer Half-Brother 4 Ovarian cancer Half-Sister 3 in [facility] Colon cancer Half-Sister 4 colectomy, gary gonzález [facility] Breast cancer Half-Sister 5 metastatic, t riple negative Leukemia Maternal Cousin 1 Cancer Maternal Cousin 2 Kidney cancer Maternal Grandfather Stroke Maternal Grandmother during Coronary artery disease Mother Diabetes Mother Hypertension Mother Stroke Mother Hysterectomy Mother's Sister 1 Hysterectomy Mother's Sister 2 Hysterectomy Mother's Sister 3 Relation Name Status Comments Father Alive limited info Half-Brother 1 Alive Half-Brother 2 Alive Half-Brother 3 Alive Half-Brother 4 (Age 6) d.cancer Half-Brother 5 Alive Half-Sibling several in childhood Half-Sister 1 Alive Half-Sister 2 Alive Half-Sister 3 Alive Half-Sister 4 Alive Half-Sister 5 Alive Half-Sister 6 Alive Half-Sister 7 Alive Maternal Cousin 1 Alive Maternal Cousin 2 (Age 5) d.canc er Maternal Grandfather (Age 79) d. surgical complications Maternal Grandmother (Age 32) d. stroke Mother (Age 53) d.stroke Mother's Brother Alive Mother's Sister 1 Alive Mother's Sister 2 Alive Mother's Sister 3 Alive Other 1 at Other 2 Other 3 Other 4 Other 5 Other 6 Alive Other 7 Alive Other 8 Alive Other 9 Alive Other 10 Alive Other 11 Alive Other 12 Alive Other 13 Alive Other 14 Alive Other 15 Alive Other 16 Alive limited info Paternal Grandfather limited info Paternal Grandmother limited info Son 1 Alive Son 2 Alive Social History Tobacco Use Types Packs/Day Years Used Date Smoking Tobacco: Never Smokeless Tobacco: Never Tobacco Cessation:Counseling Given: Not Answered Alcohol Use Standard Drinks/Week Comments Yes 1 (1 standard drink = 0.6 oz pur e alcohol) [facility] Jack[employer] Answer Date Recorded In the past 12 months [facility] [employer], gas, oil, or water [employer] threatened to shut off services in your [...] your living situation today? 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 LABORER Body Mass Index 34.25 05/28/2015 10:51 AM CONCRETE PLANT LABORER Plan of Treatment Health Maintenance Due Date Last Done Comments Hepatitis C Screening 1985 Lipid (Cholesterol) Screening 1985 Mammogram 1985 Hepatitis B Vaccines (3 of 3 - 19+ 3-dose series) 03/25/2005 10/25/2004, 09/23/2004 Cervical Cancer Screening 07/23/20222019, 05/28/2015, 10/17/2012 COVID-19 Vaccine (3 - 2022-2 4 season) 2023 04/22/2021, 03/14/2021 Depression Screening (Annual PHQ-2) 06/26/2023 Influenza Vaccine (#1) 2024 DTaP,Tdap,and Td Vaccines (2 - Td or Tdap) 01/13/2025 01/13/2015, 08/24/2005, 09/23/2004 HIV Screening Completed 03/23/2009 HPV Vaccines Aged Out No longer eligi ble based on patient's age to complete this topic Pneumococcal vaccine (0-64 years) Aged Out No longer eligible b ased on patient's age to complete this topic Procedures Procedure Name Priority Date/Time Associated Diagnosis Comments [facility] Routine 01/24/2024 1 1:34 AM CDT PATHOLOGY ANIMAL CARE PROVIDER CYTOLOGY Routine 05/28/2015 12:00 AM CONCRETE PLANT LABORER from Last 3 Months or Most Recently Relevant to Health Maintenance Results * [facility] (01/24/2024 11:34 AM CDT) Test Name [facility] Custom + RNA Panel 01/24/2024 3:16 PM CDT AMBR Result SEE COMMENT 02/13/2024 10:12 AM CDT AMBR Comment: For final report, select Lab-Send Out Lab Results hyperlink below. 01/24/2024 11:3 4 AM CDT 01/24/2024 3:16 PM CDT Олег Pratt M.D. LAB [facility] ORDERABLE S [facility] [address] [place] [address], [facility] AMBR [facility] [employer] [address] [place] [address] * Pathology ANIMAL CARE PROVIDER Cytology (05/28/2015 12:00 AM CONCRETE PLANT LABORER) 05/28/2015 Narrative [facility] LAB - 06/05/2015 7:42 AM CONCRETE PLANT LABORER [facility] in [place] [address] [facility] [address] [place], [place] ??[phone] Patient Name: ASHA CHRISTENSEN Collected: 05/28/2015 Address: City/State/Zip: [address] [place] [address] ??[phone] Received: Reported: 05/29/2015 06/05/2015 Soc. Sec. #: ?/Age/Sex 1985 (Age: 29) ??F Physician(s): ELDON ARMENDARIZ MD Copy To: ? [facility] ??[id number] [address] [facility], ??[place] ??[address] CYTOPATHOLOGY ANIMAL CARE PROVIDER REPORT * Amended * FINAL CYTOLOGIC DIAGNOSIS Pap Smear - ThinPrep: NEGATIVE FOR INTRAEPITHELIAL LESION OR MALIGNANCY ENDOCERVICAL CELLS/COMPONENT PRESENT. SATISFACTORY SPECIMEN FOR EVALUATION. Electronically Signed Out By amb06/04/2015 FABY VELA(ASCP) AM Dayna VELA(ASCP) The Pap test is a screening [...] Ricardo Armendariz M.D. LAB PAP COPATH ORDERABLES [facility] from Last 3 Months or Most Recently Relevant to Health Maintenance
--- OUTSIDE RECORDS SUMMARY | 2024-02-21 06:52 | XMS_ITS | Clinical Summary ---
Author Organization [facility] Address [place], [place] [address] Care Team Providers Care Direct Care Staffer Name Role Phone Karina Hughes MD Primary Care Provider + [phone] Allergies No known active allergies Medications Medication [...] without mention of hemorrhage 01/22/20 09 07/23/2014 Encounters Date Type Department Care Team Description 12/15/2023 Transcribe Orders [facility] [address] [place] [address] Tara Calzada MD from Last 3 Months Immunizations Name Administration Dates Next Due COVID-19 vaccine ([employer] 30mcg/0.3mL) MELANIE Cheatham 04/22/2021,03/14/2021 Hepatitis B (Adult) 10/25/2004,09/23/2004 Hepatitis B, Unspecified 10/25/2004,09/23/2004 MMR 03/23/2015,08/24/2005 Td (Age >=7 Years) 08/24/2005,09/23/2004 Tdap 01/13/2015 Varicella Vaccine 08/24/2005 Family History Medical History Relation Name Comments Diabetes Father Diabetes Mother Heart Disease Mother Hypertension Mother Stroke Mother Heart Disease Sister x2 Relation Name Status Comments Father Alive Mother Other Other no WEBLOGIC ADMINISTRATOR malignan cy as of 06/2020 Sister Social [...] Comments Blood Pressure 132/81 05/10/2023 4:07 PM SHEARER OPERATOR Pulse 94 05/10/2023 4:07 PM SHEARER OPERATOR Temperature 36.9 ??C (98.5 ??F) 05/10/2023 4:07 PM CS T Respiratory Rate 20 05/10/2023 4:07 PM SHEARER OPERATOR Oxygen Saturation 97% 05/10/2023 4:07 PM SHEARER OPERATOR Inhaled Oxygen Concentration - - Weight 88 kg (194 lb) 05/10/2023 4:07 PM SHEARER OPERATOR Height 154.9 cm (5' 1) 12/02/2020 [...] this topic Medical Devices Implanted Type Area Corporate Wellness Coordinator Device Identifier Shelf Expiration Date Model / Serial / Lot Sys Intrauterine Mirena - [id number] Implanted:Qty: 1 on 12/02/2020 by Hien Hodgson MD at [facility] N/A: Uterus Deepika [employer] 02/23/2023 [id number] / [id number] / [id number] Adhesion Barrier 3x4in Interceed Absorb - [id number] Implanted:Qty: 1 on 12/02/2020 by Hien Hodgson MD at [facility] N/A: Pelvis [employer] / Uro 06/25/2023 [id number] / / [id number] Procedures Procedure Name Priority Date/Time Associated Diagnosis Comments WEBLOGIC ADMINISTRATOR THIN PREP PAP SCREEN IMAGED Routine 07/23/2019 1:20 PM SHEARER OPERATOR ANTI HIV 1/2 Routine 07/23/2014 9:47 AM SHEARER OPERATOR Possible , not confirmed from Last 3 Months or Most Recently Relevant to Health Maintenance Results * WEBLOGIC ADMINISTRATOR THIN PREP PAP SCREEN IMAGED (07/23/2019 1:20 PM SHEARER OPERATOR) Case Report Gynecologic Cytology Report ? Case: [id number] ? Authorizing Provider: ??Baron Ruiz MD ?Collected: ? 07/23/2019 1320 ? Ordering Location: ? [facility] ?Received: ?07/25/2019 0934 ? First Screen: ?Marvin Frances ? Specimen: ?WEBLOGIC ADMINISTRATOR ThinPrep Vial Screening, Cervical/Vaginal ? 08/02/2019 8:47 AM [facility]-C ENTRAL LABORATORY INTERPRETATION/ RESULT NEGATIVE FOR INTRAEPITHELIAL LESION OR MALIGNANCY (NIL) (none) 08/02/2019 8:47 AM [facility] ENTRAL LABORAT[facility] IMEN ADEQUACY Satisfactory for evaluation Endocervical component present 08/02/2019 8:47 AM [facility] ENTRAL LABORATORY HPV REQUEST HPV and PAP 08/02/2019 8:47 AM SHEARER OPERATOR [facility] Date of LMP 07/02/2019 08/02/2019 8:47 AM SHEARER OPERATOR [facility] Additional Information 08/02/2019 8:47 AM SHEARER OPERATOR [facility] Comment: Interpreted at [facility] - [address], [place] [address] Automated Review Successful 08/02/2019 8:47 AM SHEARER OPERATOR [facility] Comment:Specimen processed s uccessfully by automated mycology teacher device, ThinPrep Imaging System, [employer] ANCILLARY TESTING WEBLOGIC ADMINISTRATOR HPV Ordered, Please see separate report 08/02/2019 8:47 AM SHEARER OPERATOR [facility] Note The pap test is a screening technique, not a diagnostic procedure. It is used primarily to screen for squamous cancers and precursor lesions. Published studies have shown that it is subject to both false negative and false positive results. The pap test should not be used as the sole means to diagnose or exclude pre-malignant and malignant lesions. 08/02/2019 8:47 AM SHEARER OPERATOR [facility] Other (Cervical/Vagina l) 07/23/2019 1:20 PM SHEARER OPERATOR 07/25/2019 9:34 AM SHEARER OPERATOR Baron Ruiz MD PATHOLOGY/CYTOLOGY Performing Organization Address City/State/[facility] Co de Phone Number [facility] [address] [place] [address], * ANTI HIV 1/2 (07/23/2014 9:47 AM SHEARER OPERATOR) HIV-1/HIV-2 ANTIBODY Non-Reacti ve Non-Reacti ve 07/23/2014 4:17 PM SHEARER OPERATOR [facility] Blood specimen (specimen) BLOOD SPECIMEN / Unknown Venipuncture / Unknown 07/23/2014 9:47 AM SHEARER OPERATOR 07/23/2014 9:47 AM SHEARER OPERATOR Narrative [facility] - 07/23/2014 4:17 PM SHEARER OPERATOR HIV-1 p24 and HIV-1/HIV-2 Ab not detected Karina Hughes MD SEND OUT[facility] [address] [place] [address], from Last 3 Months or Most Recently Relevant to Health Maintenance Advance Directives * Full Code (Latest Code Status on File) Date Activated Date Inactivated Comments 12/02/2020 6:07 AM 12/02/2020 8:24 PM Question Answer Comments Code Status Discussion: Discussed Care Teams Direct Care Staffer Relationship Specialty Start Date End Date Karina Hughes MD [address] [facility] Agnieszka BHAKTA F[place] [address] PCP - General Family Practice 05/05/11
--- OUTSIDE RECORDS SUMMARY | 2024-02-21 06:52 | XMS_ITS | Clinical Summary ---
Author Organization [facility] Address [address] [place], [place] [address] [address] Care Team Providers Care Plant Health Care Technician Name Role Phone No Ref-Primary, Physician Primary [...] Comments Blood Pressure 119/74 05/26/2022 12:30 PM PARTS COORDINATOR Pulse 85 05/26/2022 12:30 PM PARTS COORDINATOR Temperature 36.9 ??C (98.4 ??F) 05/26/2022 12:[address] Respiratory Rate 25 05/26/2022 12:30 PM PARTS COORDINATOR Oxygen Saturation 95% 05/26/2022 2:25 PM PARTS COORDINATOR Inhaled Oxygen Concentration - - Weight 92.7 kg (204 lb 6.4 oz) 05/26/2022 6:12 A M PARTS COORDINATOR Height 154.9 cm (5' 1) 05/26/2022 6:12 AM PARTS COORDINATOR Body Mass Index 38.62 05/26/2022 6:12 AM PARTS COORDINATOR Plan of Treatment Health Maintenance Due Date [...] calendar year) 2023 LIPID 2023 INFLUENZA VACCINE (#1) 2024 DTAP/TDAP/TD IMMUNIZATION (4 - Td or [...] age to complete this topic Care Teams Plant Health Care Technician Relationship Specialty Start Date End Date No Ref-Primary, Physician PCP - General 12/19/16
--- OUTSIDE RECORDS SUMMARY | 2024-02-21 06:52 | XMS_ITS | Referral Summary ---
Author Organization [facility] Address [address] [place], [place] [address] [address] Care Team Providers Care Pier Runner Name Role Phone No Ref-Primary, Physician Primary [...] Comments Blood Pressure 119/74 05/26/2022 12:30 PM EDITOR DEPARTMENT Pulse 85 05/26/2022 12:30 PM EDITOR DEPARTMENT Temperature 36.9 ??C (98.4 ??F) 05/26/2022 12:[address] Respiratory Rate 25 05/26/2022 12:30 PM EDITOR DEPARTMENT Oxygen Saturation 95% 05/26/2022 2:25 PM EDITOR DEPARTMENT Inhaled Oxygen Concentration - - Weight 92.7 kg (204 lb 6.4 oz) 05/26/2022 6:12 A M EDITOR DEPARTMENT Height 154.9 cm (5' 1) 05/26/2022 6:12 AM EDITOR DEPARTMENT Body Mass Index 38.62 05/26/2022 6:12 AM EDITOR DEPARTMENT Plan of Treatment Not on file Care Teams Pier Runner Relationship Specialty Start Date End Date No Ref-Primary, Physician PCP - General 12/19/16
--- OUTSIDE RECORDS SUMMARY | 2024-02-21 06:52 | XMS_ITS | Encounter Summary ---
Author Organization [facility] Address [address] [place] [address] Care Team Providers Care Intermediate Manager Name Role Phone Unavailable Primary Care Provider Unavailabl e Encounter Details Date Type Department Care Team (Latest Contact Info) Description 01/24/2024 11:09 AM CDT - 01/24/2024 11:59 PM CDT Hospital Encounter Department of Laboratory Medicine and Pathology, [facility] in [place], [place] [address] [place] [phone] Олег Pratt M.D. [address] [place] [phone] Cancer Breast Family History; Cancer Ovary Family History; Cancer Colon Family History; Cancer Stomach Family History; Cancer Kidney Family History; Leukemia Family History Discharge Disposition: Home or Self Care Social History Tobacco Use Types Packs/Day Years Used Date Smoking Tobacco: Never Smokeless Tobacco: Never Alcohol Use Standard Drinks/Week Comments Yes 1 (1 standard drink = 0.6 oz pur e alcohol) [facility] Utilities Answer Date Recorded In the past 12 months has [employer], gas, oil, or water company threatened to shut off services in your [...] your living situation today? I have a [facility] place to live 01/24/2024 Sex and Gender Information Value Date Recorded Sex Assigned at Female 01/24/2024 10:02 AM CDT Gender Identity Female 01/24/2024 10:02 AM CDT Sexual Orientation Straight 01/24/2024 10 :02 AM CDT documented as of this encounter Medications at Time of Discharge Medication Sig Dispensed Refills Start Date End Date FERROUS SULFATE ORAL Take by mouth. 05/28/2015 IBUPROFEN ORAL Take 1 tablet by mouth 3 (three) times a day as needed. 03/23/2015 PNV no.95/ferrous fum/folic ac ( MULTIVITAMINS ORAL) Take by mouth daily. 09/01/2014 sertraline (ZOLOFT) 100 mg tablet 01/03/2018 SUMAtriptan (IMITREX) 25 mg tablet 01/01/2018 documented as of this encounter Plan of Treatment Not on file documented as of this encounter Procedures Procedure Name Priority Date/Time Associated Diagnosis Comments [facility] Gimado Routine 01/24/2024 1 1:34 AM CDT documented in this encounter Results * Misc LMN-1 (01/24/2024 11:34 AM CDT) Test Name Jennifer Custom + RNA Panel 01/24/2024 3:16 PM CDT AMBR Result SEE COMMENT 02/13/2024 10:12 AM CDT AMBR Comment: For final report, select Lab-Send Out Lab Results hyperlink below. 01/24/2024 11:3 4 AM CDT 01/24/2024 3:16 PM CDT Олег Pratt M.D. LAB [facility] [address] [place] [address], [facility] [address] [place] [address] documented in this encounter Visit Diagnoses Diagnosis Cancer Breast Family History Cancer Ovary Family History Cancer Colon Family History Cancer Stomach Family History Cancer Kidney Family History Leukemia Family History documented in this encounter Additional Health Concerns Assessment Noted Time PHQ-9 Depression Total Score: 21 018 3:37 PM CDT documented as of this encounter
--- OUTSIDE RECORDS SUMMARY | 2024-02-21 06:52 | XMS_ITS | Encounter Summary ---
Author Organization [facility] Address [address] [place] [address]. [place] [address] Care Team Providers Care Discovery Guide Name Role Phone No Ref-Primary, Physician Primary Care Provider Reason for Referral * - Closed Specialty Diagnoses / Procedures Referred By Contac t Referred To Contact Diagnoses related condition, unspecified trimester Aiyana Storm NP [address] [address] Fax: Referral ID Status Reason Start Date Expiration Date Visits Re quested Visits Authorized [id number] Closed 12/14/2016 12/14/2017 1 1 Question Answer OB Visit? 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 Psychological Consult No * - Closed Specialty Diagnoses / Procedures Referred By Contac t Referred To Contact Diagnoses related condition, unspecified trimester Aiyana Storm NP [facility] [address] [place] [address] Fax: Referral ID Status Reason Start Date Expiration Date Visits Re quested Visits Authorized [id number] Closed 11/30/2016 11/30/2017 1 1 Question Answer MFM Location [facility] [place] 05/13/2017 Ultrasound NONE US PROC NONE MFM Issue Family history/concern *MUST request Genetic Counseling MFM Consultation (unrelated to Ultrasound findings) Yes (enter details in Comments) - history of preeclampsia, elevated bp, late care, two siblings with cleft lip Genetic Counseling Consultation: Yes fax [phone] Dr. Aiyana Storm [facility] Comments >> Patient may proceed with [...] where they were done to arrange for pepper picker prior to your scheduled appointment. Any new CT, MRI or other procedures ordered by your specialist must be performed at a [facility] facility or coordinated by your clinic's referral office. >> List of current medications >> This referral request >> Any documents/labs given to you for this referral Encounter Details Date Type Department Care Team (Late st Contact Info) Description 11/30/2016 Orders Only [facility] [address] [facility] [address] [place] [phone] Aiyana Storm, [place] [address] [address] related condition, unspecified trimester (Primary Dx) Social [...] Primary documented in this encounter Care Teams Discovery Guide Relationship Specialty Start Date End Date No Ref-Primary, Physician PCP - General 12/19/16 documented as of this encounter
--- OUTSIDE RECORDS SUMMARY | 2024-02-21 06:52 | XMS_ITS | Encounter Summary ---
Author Organization [facility] Address [address] [place] [address] Care Team Providers Care Pack Worker Supervisor Name Role Phone Unavailable Primary Care Provider Unavailabl e Reason for Visit * Reason Onset Date Comments genetic testing 01/24/2024 Encounter Details Date Type Department Care Team (Latest Contact Info) Description 01/24/2024 Clinical Communication Department of Medical Genetics in [place], [place] [address] [place] [phone] Tamar Gonzalez M.S., [facility] [address] [place] [phone] genetic testing Social History Tobacco Use Types Packs/Day Years Used Date Smoking Tobacco: Never Smokeless Tobacco: Never Alcohol Use Standard Drinks/Week Comments Yes 1 (1 standard drink = 0.6 oz pur e alcohol) [facility] Utilities Answer Date Recorded In the past 12 months has [employer], gas, oil, or water [employer] threatened to shut off services in your [...] your living situation today? I have a [facility] place to live 01/24/2024 Sex and [...]
--- NOTE | 2024-02-21 07:16 | SUR.PREOP ---
Patient's spouse, Roman, in room for admission. Fitter Helper offered blueprint blocker for spouse. Patient interpreted for patient and spouse agreed for plastic worker. Voicemail left for [employer] and Sheri. Patient and spouse okay using Ipad Electrician Locomotive.
[2024-02-21 07:49] LABS: Ur HCG Qualitative* Negative (Negative)
--- NOTE | 2024-02-21 08:07 | SUR.PREOP ---
Swedish Ipad Dental Surgery Doctor used for admission, Anesthesia PLANER OPERATOR / GRADER Rigoberto, and lab draw.
[2024-02-21 08:09] LABS: Creatinine* 0.6 mg/dL (0.5-1.5); Est. Creatinine Clearance* 89.53; Estimated Glomerular Filt Rate 116 ml/min
--- NOTE | 2024-02-21 08:19 | SUR.PREOP ---
Dr. Calzada in to speak with patient and spouse using Japanese Ipad Custom Bookbinder.
--- NOTE | 2024-02-21 08:31 | SUR.PREOP ---
ipad industrial maintenance repairer aurea jiang [phone]
--- NOTE | 2024-02-21 08:34 | W.PM.H&PU ---
History & Physical Update History & Physical Update H&P Reviewed and patient assessed: No changes noted
[2024-02-21] MEDS: CEFAZOLIN 2 GM INJ IVP (09:29)
--- NOTE | 2024-02-21 09:38 | P.NB_ITS ---
Nerve Block Nerve Block Time Seen by Provider: 09:15 Date Seen: 02/21/24 Type of block requested by surgeon for post-operative analgesia: TAP Side: bilateral Time out performed: Yes Verification of patient name: Yes Verification of date of : Yes Site marking: not applicable Name of person performing procedure: [employer] Continuous monitoring Was continuous monitoring of O2 sat, B/P, groundwater monitoring technician, recorded every 15 minutes?: Yes Procedure Checklist: sterile prep and needles Ultrasound guided. Images saved: Yes Medications given in 5ml increments after negative aspiration: Marcaine %: 0.25 mL: 30 Needle gauge: 20 and Exparel mL: 10 Patient tolerated procedure well: Yes Block Charges Block Charge (with Pro Fee): TAP Bilateral Use of Ultrasound Machine for Block: Yes- US Guidance/pain block
[2024-02-21] MEDS: BUPIVACAINE 0.25% 30 ML INJECTION (11:20)
[2024-02-21] MEDS: LIDOCAINE 1 % PF 30 ML INJECTION (11:20)
--- NOTE | 2024-02-21 12:11 | W.ANESCHARGE ---
Anesthesia Charges Start Date/Time Anesthesia Start Date: 02/21/24 Anesthesia Start Time: 09:05 Stop Date/Time Anesthesia Stop Date: 02/21/24 Anesthesia Stop Time: 12:03
[2024-02-21] MEDS: LACTATED RINGERS 1000 ML 1,000 ML 100 ML IV (12:38)
--- NOTE | 2024-02-21 12:41 | W.PM.GYNPROC ---
Procedure Note Date of procedure: 02/21/24 Will [facility] bill your pro fee for this procedure?: Yes Procedure Description: PREOPERATIVE DIAGNOSIS: Menorrhagia Dyspareunia POSTOPERATIVE DIAGNOSIS: Same TITLE OF OPERATION: 1. Total laparoscopic hysterectomy with bilateral salpingectomy 2. Peritoneal biopsy 3. Cystoscopy SURGEON: Tara Calzada MD GALLERY DIRECTOR: Ivelisse Sarah MD ANESTHESIA: General IV FLUIDS: 1070 mL crystalloid ESTIMATED BLOOD LOSS: 10 mL URINE OUTPUT: 400 mL FINDINGS: 1. Upon pelvic exam under anesthesia, the cervix and vagina were normal in appearance. Uterus was mobile and anteverted, of normal size and texture. There were no palpable adnexal masses. 2. Upon laparoscopy, survey of the upper abdomen revealed a normal appearance to the inferior edge of the liver, gallbladder and stomach. Bowels were grossly normal appearance, as was the appendix. Survey of the pelvis revealed normal appearance to the uterus. Bilateral tubes showed evidence of prior tubal ligation. Ovaries were normal in appearance. The cul-de-sac and bladder reflection were normal in appearance. There was a single ill-defined dark macule approximately 2 mm in greatest dimension along the peritoneum of the anterior left pelvis. COMPLICATIONS: None PROCEDURE IN DETAIL: Patient was taken to the operating room with IV running. She received cefazolin in preoperative prophylaxis. She was positioned in dorsal lithotomy position with her legs fully supported in Yellofin stirrups. General anesthesia was administered. She was prepped and draped in the usual sterile fashion. Pelvic exam under anesthesia was performed for the above-noted findings. Speculum was inserted. Cervix visualized and grasped along its anterior lip with a single-tooth tenaculum. Cervix was dilated with Hegar dilators to accommodate the VCare uterine manipulator. A small-sized colpotomizer cup was selected. The tip of the uterine manipulator was inserted through the cervix into the uterine cavity and the balloon was inflated. The speculum was removed. The colpotomy cup was advanced, surrounding the cervix, and the proximal occluder was moved up along the shaft of the VCare and fixed in place. Dixon catheter was placed. Patient's legs were then placed in neutral position. Attention was turned to patient's abdomen. Infraumbilical area was infiltrated with a small amount of local anesthetic. A 5 mm infraumbilical incision was made with a scalpel and carried down to the underlying layer of fascia with the hemostat. 5 mm camera was placed within the 5 mm Fios Kii trocar, and advanced under direct visualization through the anterior abdominal wall into the peritoneal cavity, while tenting up the anterior abdominal wall. The trocar was removed. The balloon was inflated, holding the port in place. Pneumoperitoneum was achieved. Survey of the abdomen and pelvis revealed the above-noted findings. Three additional port sites were created. The first was in the patient's left lower quadrant, just superomedial to the left ASIS. The second was a hand's breadth superior to and slightly medial to the first. The third was in the patient's right lower quadrant, just superomedial to the right ASIS. An 11 mm incision was made in the left lower quadrant, and a 5 mm incision was made at the other 2 sites, after assuring that large vessels were out of harm's way. A 10 mm Fios Kii port was inserted at the left lower quadrant site, and a 5 mm Fios Kii port at each of the other 2 sites, under direct visualization and without complication. The balloon on each of the four ports was inflated, holding each in place. Attention was first turned to the left fallopian tube, which was divided from the mesosalpinx, using the LigaSure bipolar cautery device, proceeding laterally to medially, and the tube was amputated at the left uterine cornua. This was removed through the port site and sent to pathology. This procedure was repeated on the patient's right side, and the right fallopian tube was also amputated at the cornua and removed from the patient's abdomen. This was also sent to pathology for further analysis. The left round ligament was cauterized and transected with the LigaSure device. The utero-ovarian ligament was cauterized and transected, and the remnants of the right broad ligament were cauterized and transected between these two structures. The bladder flap was created on the patient's left side, moving laterally to medially. The left uterine artery was cauterized and transected with the LigaSure device. Using the colpotomizer cup as a guide, the peritoneum and underlying stroma was dissected off the anticipated site of colpotomy over the posterior vaginal fornix. Attention was then turned to the right side of the uterus, where the right round ligament was cauterized and transected with the LigaSure device. The right utero-ovarian ligament was cauterized and transected, and the remnants of the right round ligament were cauterized and transected between these two structures. The bladder flap was created on the patient's right side, and dissection was carried laterally to medially, meeting the dissection where it had left off from the patient's right side. The right uterine artery was cauterized and transected with the LigaSure device. The bladder reflection was moved well below the colpotomizer cup anteriorly. The vaginal fornix was then entered laterally with monopolar cautery, using the colpotomizer cup as a guide. This device was moved along the circumference of the colpotomizer cup, until the uterus and cervix were freed from their attachments to the pelvis. The uterus was pulled into the patient's vagina, maintaining the pneumoperitoneum. Using laparoscopic needle drivers, the vaginal cuff was closed with a series of interrupted sutures of 0-Vicryl. These were placed and tied intracorporeally. Ports were left in place but all instruments were removed and pneumoperitoneum was released. Patient's legs were placed back in lithotomy position. The uterus was removed from the vagina and was sent to pathology for further analysis. Speculum exam was performed, showing an intact cuff with no obvious active bleeding. The Dixon catheter was removed from the bladder, and the cystoscope was assembled with saline inflow, outflow, and light cord in place. The patient was given IV sodium fluorescein prior to the cystoscopy. Cystoscope was advanced through the urethra into the bladder, and survey of the mucosa revealed a normal appearance. The bladder dome was intact. Bilateral ureteral jets were noted. Cystoscope was removed and Dixon catheter replaced. Patient's legs were again placed in neutral position. Insufflator was reattached to the port and pneumoperitoneum again achieved. Survey of the pelvis revealed hemostasis. The above described macule on the anterior pelvic peritoneum was excised sharply and sent to pathology for further analysis. Hemostasis was achieved with monopolar cautery. The 11 mm Fios Kii port in the left lower quadrant was removed after balloon on the port was deflated. The Raciel-Farzana laparoscopic closure device was inserted through this port. With the help of this device, the fascia was closed with a single suture of 0-Vicryl. Procedure was deemed complete. The balloons of all remaining port sites were deflated, and all ports were removed after pneumoperitoneum was released. The skin of each port site was closed in a subcuticular fashion with 4 0 Monocryl. Surgical glue was applied above this. Patient tolerated procedure well and was taken to recovery area in stable condition.
[2024-02-21] MEDS: LACTATED RINGERS 1000 ML 1,000 ML 125 ML IV ×2 (12:57→20:53)
[2024-02-21] MEDS: KETOROLAC 30 MG/ML inj IVP (18:20)
--- NOTE | 2024-02-21 19:27 | PC.NURSE ---
Pt arrived from surgery at 1350. Pt slept most of the shift until about 1730. Pt?s vital signs have been stable. Pt has a arroyo catheter in place. Pt advanced to a regular diet and tolerated well. Pt had complaints of pain ranging from 0-5 scheduled medication given and PRN medications offered. Family at bedside.
[2024-02-21] MEDS: OXYCODONE 5 MG TABLET PO (21:54)
[2024-02-21] MEDS: SODIUM CHLORIDE 0.9 % (FLUSH) 10 ML SYRINGE IVF (21:54)
[2024-02-22] MEDS: KETOROLAC 30 MG/ML inj IVP (01:18)
[2024-02-22 03:00] VITALS: BP 125/80; PULSE 74; RESP 18; TEMP 36.7; O2SAT 95
[2024-02-22 05:28] LABS: Hemoglobin* 11.2 gm/dL (12.0-16.0)
[2024-02-22 05:37] LABS: Creatinine* 0.6 mg/dL (0.5-1.5); Est. Creatinine Clearance* 89.53; Estimated Glomerular Filt Rate 116 ml/min
--- NOTE | 2024-02-22 06:21 | PC.NURSE ---
End of shift note ([id number]): Patient pleasant, alert and oriented. Ambulated in hallway x1 with stand by assist. Catheter patent with good urine output. Tolerating regular diet. Given PRN Oxycodone for pain rated 5/10. ?
[2024-02-22 08:15] VITALS: BP 127/85; PULSE 74; PULSE 75; RESP 18; TEMP 37.1; O2SAT 97
[2024-02-22] MEDS: ACETAMINOPHEN 325 MG TABLET 650 MG PO (08:52)
--- NOTE | 2024-02-22 10:14 | PM.GYNDS1 ---
DS: Providers Provider Date Seen: 02/22/24 Date of admission: 02/21/24 Primary care physician: Baron Ruiz MD Admitting Clinician: Tara Calzada MD Attending Physician on discharge: Tara Calzada MD Date of Discharge: 02/22/24 DS: Diagnosis Discharge Diagnosis (1) S/P laparoscopic hysterectomy: Status: Acute Problem details: Total laparoscopic hysterectomy with bilateral salpingectomy, peritoneal biopsy, and cystoscopy 02/21/2024 [employer]-Discharge Summary Hospital Course Hospital Course Narrative: Patient is a 38 year old woman admitted on 02/21/2024 for the surgeries noted above. Indication for surgery: Menorrhagia, deep dyspareunia. Intraoperative findings were notable for normal appearance to bilateral tubes and ovaries. There was minor scarring of the bladder reflection, consistent with previous cesareans Suppes. Uterus was of a normal weight. There was a single ill-defined dark macule along the left anterior pelvic peritoneum that was biopsied. Otherwise, there is no evidence of endometriosis. She had an uncomplicated surgery. Postoperative course has been uneventful. Vitals have been stable. She has remained afebrile. Today, on postoperative day 1, she reports the pain is well controlled. She has been able to ambulate Without difficulty. She is tolerating regular diet. She is passing flatus. Dixon catheter has been removed, and she is voiding without difficulty. Time Spent with Patient Time attestation: Total time spent providing and/or coordinating discharge services: Time spent: Less than 30 minutes [employer] - Exam Physical Exam: Vital signs: Temp Pulse Resp BP Pulse Ox O2 Del Method 98.8 F 75 18 127/85 97 Room Air 02/22/24 08:15 02/22/24 08:15 02/22/24 08:15 02/22/24 08:15 02/22/24 08:15 02/22/24 08:15 Narrative: General: Pleasant, no acute distress Heart: Regular rate and rhythm, no murmur or gallop Lungs: Crackles in left lung base, otherwise clear to auscultation bilaterally Abdomen: Soft, NABS, no distention, rebound or guarding, laparoscopic incisions clean / dry / intact Lower extremities: No edema or erythema [employer] - DS: Data Data Completed and Pending Labs on day of discharge: Labs from last 24 hours 02/22/24 05:15 Hgb 11.2 L Creatinine 0.6 Estimated Creat Clear 89.53 Estimated GFR 116 Procedures Procedures: Procedures Operation Date: 02/21/24 08:35 Actual Procedure Side Surgeon p M/S-Laparoscopic Hysterectomy, Bilateral Salpingectomy, Cystoscopy, PERITONEAL BIOPSY Bilateral Tara Calzada MD Complications: none Discharge Plan Discharge Disposition: Home w/ Parent or Adult Discharging Surgeon: Tara Calzada Follow-Up Appointment: [address] Calzada Prescriptions: New acetaminophen 325 mg Tablet 650 mg PO Q6H PRN (Reason: As needed for fever, headache, or minor pain) Qty: 0 0RF oxycodone 5 mg Tablet 5 mg PO Q4H PRN (Reason: Moderate Pain) Qty: 20 0RF ibuprofen 600 mg tablet 600 mg PO Q6H PRNQty: 30 0RF Continued sertraline 50 mg tablet 50 mg PO QDAY Qty: 90 3RF Activity Level: Activity as Tolerated Discharge Diet: Diabetic Patient Instructions: Acetaminophen (By mouth), Ibuprofen (By mouth), Oxycodone, Rapid Release (By mouth), Laparoscopic Hysterectomy (DC) Follow-up: Baron Ruiz MD [Primary Care Provider] - Tara Calzada MD [Staff Physician] - 03/05/24 10:00 am ([facility] for follow, this is the first appointment. Second appointment is Mar, @10:00am.) Discharge Orders: Discharge Order (Routine); Ordered 02/22/24 Ordered By: Tara Calzada
[2024-02-22 11:00] VITALS: BP 120/82; PULSE 76; RESP 18; TEMP 36.8; O2SAT 98
--- NOTE | 2024-02-22 12:09 | PC.NURSE ---
Nursing Care Hours: [id number] Pt this shift calm and cooperative, alert and oriented. Independent in room. Dixon backfilled with 300ml sterile normal saline, pt voided 400ml. C/o gas pain, senior medical writer encouraged pt to walk halls frequently to promote GI movement. Pt did have xs small soft BM. Tolerating regular diet. Abdomen soft, BS active, pain controlled per eMAR. Incisions CANVAS CUTTER, no issue noted. VSS. IV removed for discharge, forms went over and signed. All questions and concerns addressed. Pt wheeled out to spouse vehicle in stable condition.
== END 2024-02-22 12:13 | disposition home or self-care (01) ==
LOC: OR 06:53 → MEDSURG 06:54
PROVIDERS: PCP Family Medicine; Visit Provider Obstetrics & Gynecology
PROC: 0UT94ZZ Resection of Uterus, Percutaneous Endoscopic Approach (ICD-10-PCS; CPT 58571; principal; 2024-02-21 08:15)
DX: N92.0 Excessive and frequent menstruation with regular cycle (principal); N94.10 Unspecified dyspareunia; D25.0 Submucous leiomyoma of uterus; G89.18 Other acute postprocedural pain
CPT/HCPCS: 58571; 49321; 00840; 36415; 64488; 76942; 81025; 82565; 85018; 86850; 86900; 86901; 88305; 88307; A9270; C9290; J0665; J0690; J1100; J1200; J1630; J1885; J2001; J2405; J2704; J3010; J3490; J7120